=== PATIENT | male | born 1975 | race Two or more races ===

== ENCOUNTER 2021-05-11 09:21 | Emergency (ER) | payer SELFPAY ==
[~2021-05-11] VITALS: Ht 177.8 cm; Wt 93.2 kg
[2021-05-11] MEDS ORDERED: IBUPROFEN 200 MG TABLET. PO ONE (09:45)
--- NOTE | 2021-05-11 09:54 | PHYS DOC ---
Past Medical History Past Medical History: No Pertinent History Past Surgical History: No Surgical History Smoking Status: Never Smoker Alcohol Use: None Drug Use: None General Adult EDM: Chief Complaint: HAND PROBLEM HPI: HPI: Patient is a 45-year-old male that presents today with right hand pain. 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 Patient states he went home last night and placed some salve on there that is to help with swelling and pain, he woke up this morning with no improvement in his symptoms so he came to the emergency department for further evaluation. Patient is Armenian-speaking only and the nurse at the bedside is being used as an data systems manager. Patient states he is right-hand dominant Review of Systems: Review of Systems: Constitutional: Denies fever or chills. [] Eyes: Denies change in visual acuity. [] HENT: Denies nasal congestion or sore throat. [] Respiratory: Denies cough or shortness of breath. [] Cardiovascular: Denies chest pain or edema. [] GI: Denies abdominal pain, nausea, vomiting, bloody stools or diarrhea. [] : Denies dysuria. [] Musculoskeletal: Right hand pain Integument: Denies rash. [] Neurologic: Denies headache, focal weakness or sensory changes. [] Endocrine: Denies polyuria or polydipsia. [] Lymphatic: Denies swollen glands. [] Psychiatric: Denies depression or anxiety. [] Heart Score: C/O Chest Pain: No Risk Factors: Risk Factors: DM, Current or recent (<one month) smoker, HTN, HLP, family history of CAD, obesity. Risk Scores: Score 0 - 3: 2.5% MACE over next 6 weeks - Discharge Home Score 4 - 6: 20.3% MACE over next 6 weeks - Admit for Clinical Observation Score 7 - 10: 72.7% MACE over next 6 weeks - Early Invasive Strategies Current Medications: Current Medications Medications (Trade) Dose Ordered Sig/Jeremaih Start Time Stop Time Status Last Admin Dose Admin Ibuprofen (Motrin) 600 mg 1X ONCE 05/11/21 09:45 05/11/21 09:46 Allergies: Allergies: Allergies Coded Allergies Type Severity Reaction Last Updated Verified No Known Drug Allergies 05/11/21 No Physical Exam: PE: Constitutional: Well developed, well nourished, no acute distress, non-toxic appearance. [] HENT: Normocephalic, atraumatic, bilateral external ears normal, oropharynx moist, no oral exudates, nose normal. [] Eyes: PERRLA, EOMI, conjunctiva normal, no discharge. [] Neck: Normal range of motion, no tenderness, supple, no stridor. [] Cardiovascular:Heart rate regular rhythm, no murmur [] Lungs & Thorax: Bilateral breath sounds clear to auscultation [] Abdomen: Bowel sounds normal, soft, no tenderness, no masses, no pulsatile masses. [] Skin: Warm, dry, no erythema, no rash. [] Back: No tenderness, no CVA tenderness. [] Extremities: Right fourth finger is swollen and red patient is able to fully extend the finger but unable to make a fist due to pain, sensory and cap refill is intact distal to the pain he states the pain is mostly located in the proximal phalange of the finger. Neurologic: Alert and oriented X 3, normal motor function, normal sensory function, no focal deficits noted. [] Psychologic: Affect normal, judgement normal, mood normal. [] Current Patient Data: Vital Signs: Vital Signs Date Time Temp Pulse Resp B/P (MAP) Pulse Ox O2 Delivery O2 Flow Rate FiO2 05/11/21 09:30 97.7 68 18 115/74 (88) 96 Room Air 97.7 EKG: EKG: [] Radiology/Procedures: Radiology/Procedures: [REASON: twisting injury to third finger PROCEDURE: HAND RIGHT 3V EXAM: Right hand, 3 views. HISTORY: Third finger twisting injury. Pain. COMPARISON: None. FINDINGS: 3 views of the right hand are obtained. There is a corticated ossicle along the ulnar base of the second proximal phalanx, likely due to a chronic nonunited fracture fragment. There is slight deformity of the palmar base of the fourth middle phalanx which may be projectional or due to a healed fracture. No acute fracture is seen. There is no foreign body.. IMPRESSION: No acute osseous finding. Electronically signed by: Patsy Crowder MD (05/11/2021 9:52 AM) [id number] ] Course & Med Decision Making: Course & Med Decision Making Pertinent Labs and Imaging studies reviewed. (See chart for details) Reviewed radiological results with patient, did inform him there was no acute processes at this time, will place patient in a foam aluminum splint, advised him to take Motrin, due to the redness and possible cellulitis I did order him some cephalexin, I did give him clinics to follow-up with for further management of his hand pain. Dragon Disclaimer: Dragon Disclaimer: This electronic medical record was generated, in whole or in part, using a voice recognition dictation system. Departure Departure Impression: Primary Impression: Finger contusion Qualified Codes: S60.041A - Contusion of right ring finger without damage to nail, initial encounter Disposition: HOME / SELF CARE / HOMELESS Condition: STABLE Referrals: KAMRAN THIBODEAUX II, MD Patient Instructions: Hand Contusion Additional Instructions: Wear aluminum foam splint as needed for comfort Ice 20 minutes on 4-5 times daily to help with localized pain and swelling Motrin 600 mg take 1 tablet every 6 hours for the next 3 days then as needed for pain Cephalexin take 1 tablet twice daily for 10 days Follow-up with orthopedic doctor or your primary care doctor or one of the [facility] clinics below for any further management of this pain. [facility] [address] [place] [address] [facility] [address] [place] [address] [facility] [address] [facility] [place] [address] [facility] [address] [place] [address] [facility] [address] [place] [address] [facility] [address] [place] [address] [facility] [address] [place] [address] [facility] [address] [place] [address] [facility] [address] [place] [address] [facility] [address] [place] [address] Scripts Ibuprofen (IBUPROFEN) 600 Mg Tablet 600 MG PO PRN Q6HRS PRN for INFLAMMATION, #20 TAB Prov: GERARDO WAY PERSONNEL GENERALIST MANAGER 05/11/21 Cephalexin (CEPHALEXIN) 500 Mg Tablet 1 TAB PO BID, #20 TAB Prov: GERARDO WAY PERSONNEL GENERALIST MANAGER 05/11/[address] PERSONNEL GENERALIST MANAGER May 11, 2021 09:53
[2021-05-11] MEDS ORDERED: IBUP-1007 PO (10:10)
[2021-05-11] MEDS ORDERED: CEPH500T PO (10:10)
[2021-05-11 10:23] VITALS: BP 113/79
== END 2021-05-11 10:23 | disposition home or self-care (01) ==
LOC: ER 09:21
DX: S60.041A Contusion of right ring finger without damage to nail, initial encounter (principal); W23.0XXA Caught, crushed, jammed, or pinched between moving objects, initial encounter; Y93.89 Activity, other specified; Y92.69 Other specified industrial and construction area as the place of occurrence of the external cause; Y99.0 Civilian activity done for income or pay
CPT/HCPCS: 29130; 73130; 99283